=== PATIENT | female | born 1965 | race African-American/Black ===

== ENCOUNTER 2016-11-20 07:57 | Inpatient (IN) | payer BC ==
[2016-11-16 16:29] LABS: BASOPHILS 0.1 %; BASOPHILS ABSOLUTE 0.01 10/3/uL (0.0-0.16); EOSINOPHILS 0.8 %; EOSINOPHILS ABSOLUTE 0.07 10/3/uL (0.0-0.53); HEMATOCRIT 40.4 % (36.0-48.0); HEMOGLOBIN 13.5 g/dL (12.0-16.0); IMMATURE GRANULOCYTES 0.2 %; IMMATURE GRANULOCYTES ABSOLUTE 0.02 10/3/uL (0.0-0.11); LYMPHOCYTES 29.2 %; LYMPHOCYTES ABSOLUTE 2.71 10/3/uL (0.67-4.30); MEAN CORPUS HGB CONC 33.4 g/dL (32.0-36.0); MEAN CORPUSCULAR HEMOGLOB 29.8 pg (26.0-34.0); MEAN CORPUSCULAR VOLUME 89.2 fL (80-100); MEAN PLATELET VOLUME 11.8 fL (9.2-13.0); MONOCYTES 5.1 %; MONOCYTES ABSOLUTE 0.47 10/3/uL (0.21-1.20); NEUTROPHILS 64.6 %; NEUTROPHILS ABSOLUTE 6.01 10/3/uL (2.02-8.40); PLATELET COUNT 208 10/3/uL (150-400); RBC DISTRIBUTION WIDTH 14.3 % (12.0-16.0); RED CELL COUNT 4.53 10/6/uL (4.0-5.6); WHITE BLOOD CELLS 9.3 10/3/uL (4.5-10.5)
[2016-11-16 16:34] LABS: MANUAL DIFF NO %
[2016-11-16 16:56] LABS: A/G RATIO 0.9 (0.7-1.9); ALBUMIN 3.5 G/DL (3.5-5.0); ALKALINE PHOSPHATASE 89 U/L (45-117); BUN (BLOOD UREA NITROGEN) 17 MG/DL (6-23); CALCIUM, SERUM 8.8 MG/DL (8.5-10.4); CHLORIDE, SERUM 109 MMOL/L (96-112); CO2 (CARBON DIOXIDE) 31 MMOL/L (24-34); CREATININE 0.83 MG/DL (0.55-1.02); GFR AFRICAN AMERICAN 95 ML/MIN (>=60); GFR NON AFRICAN AMERICAN 82 ML/MIN (>=60); GLOBULIN 3.7 G/DL (2.5-4.1); GLUCOSE, SERUM 131 MG/DL (60-99); POTASSIUM, SERUM 3.9 MMOL/L (3.5-5.3); SGOT(AST) 14 U/L (5-40); SGPT(ALT) 29 U/L (5-65); SODIUM, SERUM 145 MMOL/L (135-148); TOTAL BILIRUBIN 0.2 MG/DL (0-1.2); TOTAL PROTEIN 7.2 G/DL (6.0-8.5)
[2016-11-16 17:01] LABS: ASCORBIC ACID (UR NOT ORDER) 40 (NEG); BILIRUBIN, URINE NEGATIVE (NEG); KETONE, URINE NEGATIVE (NEG); LEUKOCYTE ESTERASE(NOT OR NEG (NEG); WBC (NOT ORDERED) (RFLEX) 2 (0-5)
[2016-11-16 17:03] LABS: PLATELET ESTIMATE ADQ (ADEQUATE)
--- NOTE | ~2016-11-20 | OP ---
Record Of Operation [facility] [address] [place]. [address] NAME: ROJELIO HARRELL : 65 STATUS : ADM IN PAT#: [id number] AGE: 51 ADM/REG DATE : 11/20/16 MR#: [id number] REPORT SERV DATE: 11/21/16 DICTATED BY: HAWA LOCKE JR. DATE: 11/20/16 REPORT STATUS : Draft TRANSCRIBED BY: MODShena DATE: 11/20/16 DATE OF PROCEDURE: 11/20/2016 PREOPERATIVE DIAGNOSES: Left lower lobe non-small cell lung cancer, indeterminate mass left upper lobe versus anterior mediastinum, increased body mass index, mat-selwreu-dtedrzvuz diabetes mellitus, hypertension. 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 NAME OF OPERATION: Bronchoscopy, left thoracoscopy with thymectomy, left lower lobectomy with complete mediastinal node dissection, jaiden stations 5, 7, 9, 11L, and intercostal nerve block. SURGEON: Hawa Locke M.D. RESIDENT SURGEON: Lalo Mahoney MD. ROD PILER: Sumeet Hendricks. ANESTHESIA: General endotracheal. FINDINGS: Patient noted to have an anterior mediastinal mass well contained within the thymus gland. There appeared to still be some mature thymic tissue present. This was excised and removed and noted to be likely a thymoma. Final pathology is pending. There was a palpable mass in the left lower lobe which on preoperative biopsy was demonstrated to be a non-small cell lung cancer. We could palpate the mass. It was contained deep within the superior segment. Because of its size and the preoperative biopsy, we committed to go ahead and perform a left lower lobectomy. It would take at least a segmentectomy to remove this. Given her body habitus and size, it was extremely difficult and given the preoperative diagnosis of this being a non-small cell lung cancer, we felt that a lobectomy was in her best interest. Unfortunately frozen section confirmed after this was removed to be likely a hamartoma. Final pathology is pending. DETAILS OF OPERATION: After adequate general anesthesia, the patient was intubated. Bronchoscopy was performed noting no endobronchial lesions. No contraindication to resection. A left-sided double-lumen endotracheal tube was then placed. The patient was then positioned in the right lateral decubitus position with the left chest prepped and draped in a routine sterile fashion. A small incision was made overlying the lower intercostal space. A separate anterior trocar incision was made. The chest was explored noting the above findings. The mass in what was thought to be in the left upper lobe was actually in the thymus. This was excised in its entirety. There appeared to still be some mature thymic tissue present. It was placed in a specimen bag and drawn through the anterior trocar site. It was noted to likely be a thymoma. There was still a possibility this could represent a lymphoma. Final pathology is pending. Certainly it was felt to be different from the lung biopsy. We decided to go ahead and proceed on with a left lower Record Of Operation [address] [place]. [address] NAME: ROJELIO HARRELL : 65 STATUS : ADM IN PAT#: [id number] AGE: 51 ADM/REG DATE : 11/20/16 MR#: [id number] REPORT SERV DATE: 11/21/16 DICTATED BY: HAWA LOCKE JR. DATE: 11/20/16 REPORT STATUS : Draft TRANSCRIBED BY: STARLA DATE: 11/20/16 lobectomy. The inferior pulmonary ligament was divided. The inferior pulmonary vein was identified and transected. The fissure was divided with multiple firings of TRACE stapler with tissue reinforcements. The bronchus was divided with a TRACE stapler. The specimen was placed within a specimen bag and withdrawn through the anterior trocar site. This specimen was placed in a specimen bag and withdrawn through the anterior trocar site. Nodes were removed from the AP window, subcarinal, inferior pulmonary ligament, and hilar regions. Frozen section confirmed this likely to be hamartoma. Additional nodes were sent separately. Adequate hemostasis was obtained. An intercostal nerve block was performed. A 20-Nepali chest tube was then placed. The lung was reinflated. The trocar sites were closed with running Vicryl sutures. The skin was closed with running monofilament suture. A Dermabond dressing was applied and the procedure was terminated at this point. VIKA/STARLA Hawa Locke Jr., M.D. / [id number] CC: Choco Tompkins Jr., M.D. Michael T Czarnecki, M.D. Brian Balfour, MD
[~2016-11-20 07:57] MED LIST: ASAB PO; GLUCPH PO; VITAMIN D1000 UNI1 PO; ZESTRIL20 MG PO
[2016-11-21 04:43] LABS: BASOPHILS 0.1 %; BASOPHILS ABSOLUTE 0.01 10/3/uL (0.0-0.16); EOSINOPHILS 0.1 %; EOSINOPHILS ABSOLUTE 0.01 10/3/uL (0.0-0.53); HEMATOCRIT 39.7 % (36.0-48.0); HEMOGLOBIN 13.5 g/dL (12.0-16.0); IMMATURE GRANULOCYTES 0.2 %; IMMATURE GRANULOCYTES ABSOLUTE 0.03 10/3/uL (0.0-0.11); LYMPHOCYTES 13.1 %; LYMPHOCYTES ABSOLUTE 1.97 10/3/uL (0.67-4.30); MEAN CORPUSCULAR VOLUME 88.2 fL (80-100); MEAN PLATELET VOLUME 11.3 fL (9.2-13.0); MONOCYTES 7.9 %; MONOCYTES ABSOLUTE 1.19 10/3/uL (0.21-1.20); NEUTROPHILS 78.6 %; NEUTROPHILS ABSOLUTE 11.86 10/3/uL (2.02-8.40); PLATELET COUNT 218 10/3/uL (150-400); RBC DISTRIBUTION WIDTH 14.5 % (12.0-16.0)
[2016-11-21 04:48] LABS: MANUAL DIFF NO %; WHITE BLOOD CELLS 15.1 10/3/uL (4.5-10.5)
[2016-11-21 04:55] LABS: BUN (BLOOD UREA NITROGEN) 14 MG/DL (6-23); CHLORIDE, SERUM 108 MMOL/L (96-112); GFR AFRICAN AMERICAN 99 ML/MIN (>=60); GFR NON AFRICAN AMERICAN 85 ML/MIN (>=60); GLUCOSE, SERUM 111 MG/DL (60-99); POTASSIUM, SERUM 4.2 MMOL/L (3.5-5.3); SODIUM, SERUM 143 MMOL/L (135-148)
[2016-11-21 04:59] LABS: CO2 (CARBON DIOXIDE) 25 MMOL/L (24-34)
[2016-11-21] MEDS ORDERED: PCET PO (08:46)
== END 2016-11-21 17:39 | disposition home or self-care (01) | DRG 827 ==
LOC: SDC/OF 07:57 → PACU 14:42 → 5NO 16:33
PROVIDERS: Thoracic Surgery (Cardiothoracic Vascular Surgery)
PROC: 0BTJ4ZZ Resection of Left Lower Lung Lobe, Percutaneous Endoscopic Approach (ICD-10-PCS; 2016-11-20)
PROC: 07B74ZZ Excision of Thorax Lymphatic, Percutaneous Endoscopic Approach (ICD-10-PCS; 2016-11-20)
PROC: 3E0T3BZ Introduction of Anesthetic Agent into Peripheral Nerves and Plexi, Percutaneous Approach (ICD-10-PCS; 2016-11-20)
PROC: 07BM4ZZ Excision of Thymus, Percutaneous Endoscopic Approach (ICD-10-PCS; principal; 2016-11-20 09:45)
DX: C37 Malignant neoplasm of thymus (principal); Q85.9 Phakomatosis, unspecified; I10 Essential (primary) hypertension; E11.9 Type 2 diabetes mellitus without complications
CPT/HCPCS: 36415; 71020; 80048; 80053; 81001; 82962; 83036; 85025; 85610; 86850; 86900; 86901; 87641; 88305; 88307; 88309; 88331; 88332; 88341; 88342; 94640; A9270-GY; J0690; J1885; J2250; J2370; J2405; J2710; J2795; J3010